=== PATIENT | male | born 1955 | race Caucasian/White ===

== ENCOUNTER 2017-01-25 15:34 | Emergency (ER) | payer OTHER ==
[~2017-01-25] VITALS: Ht 185.4 cm; Wt 77.3 kg
[~2017-01-25 15:34] MED LIST: ALPR1TAB10 PO; DIAZ5TAB4 PO; ERGO500017 PO; HYDR-3240 PO; IMODIUM AD; LORA1TAB PO; MULT-750 PO; ONDA4FIL4 PO; ONDA4TAB10; ONDA4TAB7 PO; PANT20TA2 PO; TRAM50TA2 PO; TRAZ50TA18 PO; [UNRECOGNIZED DRUG - REMARK] PO
[2017-01-25 15:35] VITALS: BP 156/74
[2017-01-25 16:21] LABS: ASPARTATE AMINO TRANSFERASE 19 U/L (15-37); BLOOD UREA NITROGEN 6 mg/dL (7-18)
== END 2017-01-25 17:33 | disposition left against medical advice (07) ==
LOC: ED 17:32
DX: K29.20 Alcoholic gastritis without bleeding (principal); R10.32 Left lower quadrant pain; F10.129 Alcohol abuse with intoxication, unspecified
CPT/HCPCS: 36415; 74022; 80053; 85025; 99285

== ENCOUNTER 2017-07-13 18:39 | Emergency (ER) | payer OTHER ==
[~2017-07-13] VITALS: Ht 188 cm; Wt 88.9 kg
[2017-07-13 19:21] VITALS: BP 127/82
[2017-07-13 19:21] LABS: DAU SCREEN DISCLAIMER
[2017-07-13 19:23] LABS: HEMATOCRIT 43.4 % (39.2-51.8); HEMOGLOBIN 14.6 g/dL (13.7-18.0); WHITE BLOOD COUNT 6.2 x10^3/uL (3.4-10)
[2017-07-13] MEDS ORDERED: SODIUM CHLORIDE FLUSH 10ML SYR IVF ONE (19:30)
[2017-07-13] MEDS ORDERED: SODIUM CHLORIDE 0.9% 1,000ML IVBOLUS ONE (19:30)
[2017-07-13 19:35] LABS: ASPARTATE AMINO TRANSFERASE 45 U/L (15-37); BLOOD UREA NITROGEN 11 mg/dL (7-18)
[2017-07-13 19:37] LABS: ACETAMINOPHEN < 2 mcg/mL (10-30)
[2017-07-13] MEDS ORDERED: MAALOX/HYOSCYAMINE/LIDOCAINE 45 ML BTL PO ONE (20:30)
[2017-07-13] MEDS ORDERED: FAMOTIDINE 20 MG/2 ML IVPush ONE (20:30)
[2017-07-13] MEDS ORDERED: MAALOX/HYOSCYAMINE/LIDOCAINE 45 ML BTL ONE (20:39)
[2017-07-13] MEDS ORDERED: FAMOTIDINE 20 MG TABLET ONE (20:39)
[2017-07-13] MEDS ORDERED: FAMOTIDINE 20 MG TABLET PO ONE (21:00)
== END 2017-07-13 20:54 | disposition home or self-care (01) ==
LOC: ED 20:48
DX: K29.20 Alcoholic gastritis without bleeding (principal); F10.20 Alcohol dependence, uncomplicated; F11.20 Opioid dependence, uncomplicated; Z88.2 Allergy status to sulfonamides; Z88.8 Allergy status to other drugs, medicaments and biological substances
CPT/HCPCS: 36415; 76700; 80053; 80307; 80329; 81003; 83690; 85025; 93005; 96360; 99285; J7030; G0479; G0480

== ENCOUNTER 2017-07-19 09:57 | Inpatient (IN) | payer OTHER ==
[~2017-07-19] VITALS: Ht 188 cm; Wt 89.0 kg
[2017-07-19] MEDS ORDERED: SODIUM CHLORIDE 0.9% 1,000 ML IV ONE (10:33)
[2017-07-19] MEDS ORDERED: HYDROmorphone 1 MG/ML, 1ML ONE ×2 (10:58→11:56)
[2017-07-19] MEDS ORDERED: METOCLOPRAMIDE 5 MG/ML, 2ML ONE (10:58)
[2017-07-19] MEDS ORDERED: METOCLOPRAMIDE 5 MG/ML, 2ML IVPush ONE ×2 (11:00→18:00)
[2017-07-19] MEDS ORDERED: SODIUM CHLORIDE 0.9% 1,000ML IVBOLUS ONE (11:00)
[2017-07-19] MEDS ORDERED: SODIUM CHLORIDE FLUSH 10ML SYR IVF ONE (11:00)
[2017-07-19] MEDS: HYDROmorphone 1 MG/ML, 1ML IVPush PRN ×2 (11:01→12:02)
[2017-07-19 11:05] LABS: HEMATOCRIT 44.4 % (39.2-51.8); HEMOGLOBIN 15.4 g/dL (13.7-18.0); WHITE BLOOD COUNT 11.5 x10^3/uL (3.4-10)
[2017-07-19 11:12] LABS: ASPARTATE AMINO TRANSFERASE 35 U/L (15-37); BLOOD UREA NITROGEN 5 mg/dL (7-18)
[2017-07-19] MEDS ORDERED: THIAMINE 100 MG in SODIUM CHLORIDE 0.9% 50 ML IVPB ONE (11:30)
[2017-07-19] MEDS ORDERED: LORazepam 2 MG/ML, 1ML ONE ×2 (13:37→18:33)
[2017-07-19] MEDS: LORazepam 2 MG/ML, 1ML IVPush PRN ×5 (13:41→22:29)
[2017-07-19] MEDS ORDERED: SODIUM CHLORIDE FLUSH 10ML SYR IVF PRN (15:00)
[2017-07-19] MEDS: NS + 20MEQ KCL 1,000 ML IV SCH ×2 (15:04→17:18)
[2017-07-19] MEDS ORDERED: POLYETHYLENE GLYCOL 17 GM PACKET PO PRN (15:30)
[2017-07-19] MEDS ORDERED: DOCUSATE 100 MG CAPSULE PO PRN (15:30)
[2017-07-19] MEDS: PIPERACILLIN/TAZO/PMX 3.375GM 50 ML IV SCH ×3 (15:30→23:39)
[2017-07-19] MEDS ORDERED: ACETAMINOPHEN 325 MG TABLET PO PRN (15:30)
[2017-07-19] MEDS ORDERED: BISACODYL 10 MG SUPP PR PRN (15:30)
[2017-07-19] MEDS ORDERED: LABETALOL 5MG/ML, 20ML IVPush PRN (15:30)
[2017-07-19 16:19] VITALS: BP 145/79
[2017-07-19] MEDS ORDERED: PROCHLORPERAZINE 5 MG/ML, 2ML ONE (16:58)
[2017-07-19] MEDS: POTASSIUM CHLORIDE 20 MEQ, MAGNESIUM SULFATE 2 GM, THIAMINE 100 MG, MVI ADULT 10 ML, FO... IV SCH ×2 (17:06→22:29)
[2017-07-19] MEDS: morphine SULFATE 10 MG/ML, 1ML IVPush PRN ×4 (17:06→23:38)
[2017-07-19] MEDS: BEER 12 OZ CAN PO SCH (17:14)
[2017-07-19] MEDS: PROCHLORPERAZINE 5 MG/ML, 2ML IVPush PRN ×2 (17:14→23:38)
[2017-07-19] MEDS: TRAZODONE 50MG TABLET PO SCH (20:42)
[2017-07-19] MEDS: HYDROcodone/APAP 5/325 TABLET PO PRN (20:42)
[2017-07-19 20:44] VITALS: BP 135/73
[2017-07-20] MEDS: HYDROcodone/APAP 5/325 TABLET PO PRN ×2 (00:12→21:56)
[2017-07-20 03:37] VITALS: BP 154/83
[2017-07-20 05:34] LABS: HEMATOCRIT 38.5 % (39.2-51.8); HEMOGLOBIN 13.5 g/dL (13.7-18.0); WHITE BLOOD COUNT 5.7 x10^3/uL (3.4-10)
[2017-07-20 05:42] LABS: ASPARTATE AMINO TRANSFERASE 22 U/L (15-37); BLOOD UREA NITROGEN 5 mg/dL (7-18)
[2017-07-20] MEDS: POTASSIUM CHLORIDE 20 MEQ, MAGNESIUM SULFATE 2 GM, THIAMINE 100 MG, MVI ADULT 10 ML, FO... IV SCH (06:16)
[2017-07-20 07:14] VITALS: BP 169/89
[2017-07-20] MEDS: ALPRazolam 1MG TABLET PO SCH (07:35)
[2017-07-20] MEDS: BEER 12 OZ CAN PO SCH ×3 (07:35→17:00)
[2017-07-20] MEDS: PIPERACILLIN/TAZO/PMX 3.375GM 50 ML IV SCH ×3 (07:36→18:11)
[2017-07-20] MEDS: PROCHLORPERAZINE 5 MG/ML, 2ML IVPush PRN ×2 (07:54→17:55)
[2017-07-20] MEDS: LORazepam 2 MG/ML, 1ML IVPush PRN ×2 (07:54→14:20)
[2017-07-20] MEDS: morphine SULFATE 10 MG/ML, 1ML IVPush PRN ×2 (07:54→14:20)
[2017-07-20] MEDS: NS + 20MEQ KCL 1,000 ML IV SCH ×2 (11:04→14:00)
[2017-07-20 14:05] VITALS: BP 148/85
[2017-07-20] MEDS ORDERED: POTASSIUM CHLORIDE 40 MEQ in SODIUM CHLORIDE 0.9% 500 ML IV ONE (15:00)
[2017-07-20] MEDS ORDERED: LORazepam 2 MG/ML, 1ML IV PRN ×5 (15:00)
[2017-07-20] MEDS ORDERED: LORazepam 1MG TABLET PO PRN ×3 (15:00)
[2017-07-20] MEDS ORDERED: LORazepam 0.5MG TABLET PO PRN (15:00)
[2017-07-20] MEDS ORDERED: OXYcodone IR 5MG TABLET PO PRN (17:30)
[2017-07-20] MEDS: LORazepam 1MG TABLET PO PRN ×2 (17:50→21:57)
[2017-07-20 20:00] VITALS: BP 152/76
[2017-07-20] MEDS: TRAZODONE 50MG TABLET PO SCH (21:56)
[2017-07-21] MEDS: POTASSIUM CHLORIDE 20 MEQ, MAGNESIUM SULFATE 2 GM, THIAMINE 100 MG, MVI ADULT 10 ML, FO... IV SCH ×2 (00:11→08:16)
[2017-07-21] MEDS: NS + 20MEQ KCL 1,000 ML IV SCH ×2 (00:13→10:00)
[2017-07-21] MEDS: PROCHLORPERAZINE 5 MG/ML, 2ML IVPush PRN (01:51)
[2017-07-21 02:39] VITALS: BP 152/83
[2017-07-21] MEDS: PIPERACILLIN/TAZO/PMX 3.375GM 50 ML IV SCH ×2 (03:34→09:30)
[2017-07-21 05:01] LABS: HEMATOCRIT 39.4 % (39.2-51.8); HEMOGLOBIN 13.7 g/dL (13.7-18.0); WHITE BLOOD COUNT 5.1 x10^3/uL (3.4-10)
[2017-07-21 05:07] LABS: BLOOD UREA NITROGEN 4 mg/dL (7-18)
[2017-07-21 06:59] VITALS: BP 158/95
[2017-07-21] MEDS: BEER 12 OZ CAN PO SCH (07:17)
[2017-07-21] MEDS: ALPRazolam 1MG TABLET PO SCH (09:00)
[2017-07-21] MEDS ORDERED: DOCU-131 PO (10:09)
[2017-07-21] MEDS ORDERED: CEFD300C37 PO (10:09)
[2017-07-21] MEDS ORDERED: LORA-446 PO (10:09)
[2017-07-21] MEDS ORDERED: OXYC5TAB3 PO (10:09)
[2017-07-21] MEDS ORDERED: METR500T PO (10:09)
== END 2017-07-21 10:40 | disposition home or self-care (01) | DRG 872 ==
LOC: ED 10:57 → EDIP 14:36 → 4NOR 16:13 → DCLOUNGE 07-21 10:25
PROVIDERS: ADMIT Hospitalist; ATTEND Hospitalist
DX: A41.9 Sepsis, unspecified organism (principal); K80.00 Calculus of gallbladder with acute cholecystitis without obstruction; K76.0 Fatty (change of) liver, not elsewhere classified; E87.1 Hypo-osmolality and hyponatremia; F10.239 Alcohol dependence with withdrawal, unspecified; E86.9 Volume depletion, unspecified; E87.6 Hypokalemia; E86.0 Dehydration; G89.29 Other chronic pain; K57.10 Diverticulosis of small intestine without perforation or abscess without bleeding; K82.8 Other specified diseases of gallbladder; M19.90 Unspecified osteoarthritis, unspecified site; M47.812 Spondylosis without myelopathy or radiculopathy, cervical region; Z66 Do not resuscitate; Z90.49 Acquired absence of other specified parts of digestive tract; Z90.79 Acquired absence of other genital organ(s); Z80.9 Family history of malignant neoplasm, unspecified
CPT/HCPCS: 36415; 74177; 74181; 76700; 80048; 80053; 81001; 83690; 83735; 84100; 85025; 87040; 96361; 96365; 96366; 96375; 96376; J1170; J2543; J3411; J3475; J3480; J7042; J0780; J2060; J2270; J2765; J7030; J7040

== ENCOUNTER 2017-07-27 11:10 | Day surgery (SDC) | payer OTHER ==
[~2017-07-27] VITALS: Ht 188 cm; Wt 82.4 kg
[~2017-07-27 11:10] MED LIST changes: +BUPIVACAINE/PF 0.5% ONE; +CEFD300C37 PO; +CEFOTETAN 1 GM ONE; +DEXAMETHASONE 4 MG/ML, 5ML ONE; +DOCU-131 PO; +EPINEPHRINE 1 MG/ML, 1ML ONE; +ESMOLOL 100 MG/10 ML ONE; +GLYCOPYRROLATE 0.2MG/1ML, 5ML ONE; +KETOROLAC 30 MG/1 ML ONE; +LORA-446 PO; +METR500T PO; +NEOSTIGMINE 1 MG/ML, 10ML ONE; +OXYC5TAB3 PO; +ROCURONIUM 10 MG/ML,10ML ONE
[2017-07-27 12:02] VITALS: BP 125/74
[2017-07-27] MEDS ORDERED: LACTATED RINGERS 1,000 ML IV SCH (12:07)
[2017-07-27 12:10] VITALS: BP 125/74
[2017-07-27] MEDS ORDERED: LIDOCAINE 1%, 2ML ONE (12:10)
[2017-07-27] MEDS ORDERED: PROPOFOL 10 MG/ML, 20ML ONE (12:59)
[2017-07-27] MEDS ORDERED: FENTANYL PF 100 MCG/2ML ONE ×3 (12:59→15:17)
[2017-07-27] MEDS ORDERED: SUCCINYLCHOLINE 20 MG/ML, 10ML ONE (13:00)
[2017-07-27] MEDS ORDERED: OMNIPAQUE 350 MG/ML, 50 ML BOTTLE ONE (14:00)
[2017-07-27] MEDS ORDERED: OMNIPAQUE 350 MG/ML, 50 ML BOTTLE IV ONE (14:27)
[2017-07-27] MEDS ORDERED: HYDROmorphone 1 MG/ML, 1ML IV PRN (14:30)
[2017-07-27] MEDS ORDERED: OXYcodone 5 MG/5 ML ORAL.SOL UDC PO PRN (14:30)
[2017-07-27] MEDS ORDERED: hydrALAzine 20 MG/ML, 1ML IV PRN (14:30)
[2017-07-27] MEDS ORDERED: LABETALOL 5MG/ML, 20ML IV PRN (14:30)
[2017-07-27] MEDS ORDERED: PROMETHAZINE 25 MG/ML, 1ML IV PRN (14:30)
[2017-07-27] MEDS ORDERED: ACETAMINOPHEN 650 MG/20.3 ML UDC ONE (15:17)
[2017-07-27] MEDS ORDERED: PROMETHAZINE 25 MG/ML, 1ML ONE (15:17)
[2017-07-27] MEDS ORDERED: OXYcodone 5 MG/5 ML ORAL.SOL UDC ONE ×2 (15:18→15:53)
[2017-07-27] MEDS: FENTANYL PF 100 MCG/2ML IV PRN ×2 (15:20→15:30)
== END 2017-07-27 17:40 ==
LOC: OUT 11:10
PROVIDERS: ATTEND Surgery
DX: K80.11 Calculus of gallbladder with chronic cholecystitis with obstruction (principal); Z72.89 Other problems related to lifestyle; Z88.1 Allergy status to other antibiotic agents
CPT/HCPCS: 47563; 74300; 88304; J0171; J0330; J1100; J1885; J2550; J2704; J2710; J3010; J3490; J7120; Q9967; S0074